=== PATIENT | male | born 1985 | race Caucasian/White ===

== ENCOUNTER 2016-11-04 02:43 | Emergency (ER) | payer SELFPAY ==
[~2016-11-04] VITALS: Ht 185.4 cm; Wt 75.0 kg
[~2016-11-04 02:43] MED LIST: BUPR2SUB SL
[2016-11-04 02:46] VITALS: BP 124/82; PULSE 88; RESP 18; TEMP 97.9; O2SAT 96
--- NOTE | 2016-11-04 03:30 | RADRPT ---
EXAM DATE/TIME: 11/04/2016 02:48 [facility] COMPARISON: No previous studies available for comparison. INDICATIONS : Left ankle pain and swelling for one week without any known trauma. MEDICAL HISTORY : None. SURGICAL HISTORY : None. ENCOUNTER: Initial ACUITY: 1 week PAIN SCORE: 6/10 LOCATION: Left Ankle FINDINGS: Three view exam was performed of the left ankle. The bony structures are in normal alignment. No ev idence of fracture or dislocation. Minimal soft tissue swelling. The ankle mortise is intact. No ra diopaque foreign bodies are seen. Bony mineralization is normal. CONCLUSION: Soft tissue swelling without fracture. Vahid Matos MD on November 04, 2016 at 3:28 Board Certified Radiologist. This report was verified electronically.
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
[2016-11-04] MEDS ORDERED: BACT2OIN TOPICAL (03:36)
[2016-11-04] MEDS ORDERED: IBUP800T23 PO (03:36)
[2016-11-04] MEDS ORDERED: IBUPROFEN 800 MG TAB PO ONE (03:45)
== END 2016-11-04 04:05 | disposition home or self-care (01) ==
LOC: NEPB 02:43
DX: S86.892A Other injury of other muscle(s) and tendon(s) at lower leg level, left leg, initial encounter (principal); L01.00 Impetigo, unspecified; X58.XXXA Exposure to other specified factors, initial encounter; Y93.9 Activity, unspecified; Y92.9 Unspecified place or not applicable; Y99.9 Unspecified external cause status; F10.10 Alcohol abuse, uncomplicated; F17.210 Nicotine dependence, cigarettes, uncomplicated; Z87.898 Personal history of other specified conditions
CPT/HCPCS: 73610; 99283

== ENCOUNTER 2017-06-24 20:05 | Emergency (ER) | payer SELFPAY ==
[~2017-06-24 20:05] MED LIST changes: +BACT2OIN TOPICAL; +IBUP1TAB7 PO
[2017-06-24 20:07] VITALS: BP 133/79; PULSE 82; RESP 16; TEMP 98.5; O2SAT 99
--- NOTE | 2017-06-24 21:57 | RADRPT ---
EXAM DATE/TIME: 06/24/2017 20:43 [facility] COMPARISON: No previous studies available for comparison. INDICATIONS : Right hand pain. Patient states he had a blister pop one week ago and has had servere pain the last t hree days. MEDICAL HISTORY : None. SURGICAL HISTORY : None. ENCOUNTER: Initial ACUITY: 3 days PAIN SCORE: 8/10 LOCATION: Right hand. FINDINGS: Three view examination of the right hand demonstrates no soft tissue swelling, dislocation, or fractu re. The carpal bones appear intact. The interphalangeal and metacarpophalangeal joints are intact. Bony mineralization is normal. CONCLUSION: Unremarkable examination of the right hand. Uriel Resendez MD on June 24, 2017 at 21:55 Board Certified Radiologist. This report was verified electronically.
[2017-06-24] MEDS ORDERED: TETANUS/DIPHTHERIA TOXOID ADULT 0.5 ML VIAL IM ONE (22:45)
[2017-06-24] MEDS ORDERED: KETOROLAC TROMETHAMINE 60 MG/2 ML (IM) VIAL IM ONE (22:45)
[2017-06-24] MEDS ORDERED: CEPHALEXIN MONOHYDRATE 500 MG CAP PO ONE (22:45)
[2017-06-24] MEDS ORDERED: SULFAMETHOXAZOLE-TRIMETHOPRIM DS 800-160 MG TAB PO ONE (22:45)
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
[2017-06-24] MEDS ORDERED: CEPH-460 PO (22:55)
[2017-06-24] MEDS ORDERED: NAPR500 PO (22:55)
[2017-06-24] MEDS ORDERED: BACT800T5 PO (22:55)
== END 2017-06-24 23:28 | disposition home or self-care (01) ==
LOC: NEPK 20:05
DX: L03.113 Cellulitis of right upper limb (principal); F98.8 Other specified behavioral and emotional disorders with onset usually occurring in childhood and adolescence; F31.9 Bipolar disorder, unspecified; F41.9 Anxiety disorder, unspecified; F20.9 Schizophrenia, unspecified; F60.9 Personality disorder, unspecified; F17.200 Nicotine dependence, unspecified, uncomplicated; Z86.19 Personal history of other infectious and parasitic diseases; Z23 Encounter for immunization
CPT/HCPCS: 73130; 90471; 90714; 96372; 99284; J1885

== ENCOUNTER 2017-06-28 15:37 | Emergency (ER) | payer SELFPAY ==
[~2017-06-28] VITALS: Ht 185.4 cm; Wt 82.0 kg
[~2017-06-28 15:37] MED LIST changes: +BACT800T5 PO; +CEPH-460 PO; +NAPR500 PO
[2017-06-28 15:39] VITALS: BP 131/69; PULSE 75; RESP 17; TEMP 97.8; O2SAT 98
[2017-06-28] MEDS ORDERED: LIDOCAINE HCL 1% PF 30 ML VIAL INFIL ONE (17:15)
--- NOTE | 2017-06-28 18:29 | PD ---
Physical Exam Date Seen by Provider: Jun 28, [address] Taylor requested me to perform an incision and drainage on this patient. She is currently taking 2 antibiotics for this condition. I&D performed on left middle finger for a felon INCISION AND DRAINAGE OF ABSCESS: The area was prepped and was sterilely draped. A digital block was performed of the left middle finger with 1% lidocaine without epinephrine. A #11 scalpel was used to make a 5 mm incision across the area of the abscess. The abscess was drained, complex loculations were broken down, and irrigated with normal saline. Cultures were obtained. Quarter inch iodoform packing was placed in the wound- acting as a wick. Sterile dressing applied. Patient advised to have packing removed in 24 hours. Advised on wound care. Advised to continue antibiotics for this wound. Data Data Last Documented VS Vital Signs Date Time Temp Pulse Resp B/P (MAP) Pulse Ox O2 Delivery O2 Flow Rate FiO2 06/28/17 15:39 97.8 75 17 131/69 (89) 98 Room Air Orders Orders Lidocaine Pf 1% Inj (Xylocaine-Mpf 1% In (06/28/17 17:15) Ed Discharge Order (06/28/17 18:48) MDM Supervised Visit with [facility]ME: Yes Procedures Procedure Narrative i&D Diagnosis Primary Impression: Abscess Additional Instruction: Remove packing and bandages in 1 day Replace bandages at least daily. Keep clean and dry for at least 3 days. Longer if the site continues to have pus Take all medications as prescribed. Disposition: 01 DISCHARGE HOME Condition: Stable Ingris Duque Jun 28, 2017 18:29
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
== END 2017-06-28 19:18 | disposition home or self-care (01) ==
LOC: NEPD 15:37
DX: L02.512 Cutaneous abscess of left hand (principal); Z86.59 Personal history of other mental and behavioral disorders; Z86.19 Personal history of other infectious and parasitic diseases
CPT/HCPCS: 26010

== ENCOUNTER 2017-08-14 17:03 | Emergency (ER) | payer OTHER ==
[~2017-08-14] VITALS: Ht 182.9 cm; Wt 70.0 kg
[2017-08-14 17:20] VITALS: BP 137/80; PULSE 88; RESP 18; TEMP 98.2; O2SAT 100
[2017-08-14 18:14] VITALS: BP 143/79; PULSE 71; RESP 15; O2SAT 98
[2017-08-14 19:28] VITALS: BP 139/66; PULSE 68; RESP 16; O2SAT 98
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
[2017-08-14] MEDS ORDERED: SODIUM CHLOR 0.9% 1000 ML INJ 1,000 ML IV ONE (21:30)
[2017-08-14 22:17] LABS: AUTOMATED NEUTROPHIL # 5.9 TH/MM3 (1.8-7.7); BASOPHIL % 0.6 % (0.0-2.0); EOSINOPHIL # 0.1 TH/MM3 (0-0.4); EOSINOPHIL % 0.8 % (0.0-4.0); HEMATOCRIT 39.1 % (39.0-51.0); HEMOGLOBIN 13.3 GM/DL (13.0-17.0); LYMPH % 17.9 % (9.0-44.0); LYMPHOCYTE # 1.5 TH/MM3 (1.0-4.8); MEAN CELL VOLUME 87.8 FL (80.0-100.0); MEAN CORPUSCULAR HEMOGLOBIN 29.8 PG (27.0-34.0); MEAN PLATELET VOLUME 9.4 FL (7.0-11.0); MONO % 9.6 % (0.0-8.0); MONOCYTE # 0.8 TH/MM3 (0-0.9); NEUT % 71.1 % (16.0-70.0); PLATELET COUNT 220 TH/MM3 (150-450); RED BLOOD COUNT 4.45 MIL/MM3 (4.50-5.90); RED CELL DISTRIBUTION WIDTH 14.5 % (11.6-17.2); WHITE BLOOD COUNT 8.3 TH/MM3 (4.0-11.0)
[2017-08-14 22:40] LABS: ALBUMIN 3.9 GM/DL (3.4-5.0); ALT (GPT) 179 U/L (12-78); AST (GOT) 112 U/L (15-37); BICARBONATE 27.6 MEQ/L (21.0-32.0); BLOOD UREA NITROGEN 11 MG/DL (7-18); CALCIUM 8.8 MG/DL (8.5-10.1); CHLORIDE 102 MEQ/L (98-107); CREATININE 0.74 MG/DL (0.60-1.30); GLOMERULAR FILTRATION RATE 121 ML/MIN (>89); GLUCOSE,RANDOM 84 MG/DL (74-106); SODIUM (NA) 137 MEQ/L (136-145)
[2017-08-14 22:41] LABS: ALKALINE PHOSPHATASE 46 U/L (45-117); TOTAL BILIRUBIN ADULT 0.7 MG/DL (0.2-1.0); TOTAL PROTEIN 7.5 GM/DL (6.4-8.2)
== END 2017-08-14 23:44 | disposition home or self-care (01) ==
LOC: NEPD 17:03
DX: T40.1X1A Poisoning by heroin, accidental (unintentional), initial encounter (principal); T42.4X5A Adverse effect of benzodiazepines, initial encounter; F31.9 Bipolar disorder, unspecified; F41.9 Anxiety disorder, unspecified; G47.00 Insomnia, unspecified; F20.9 Schizophrenia, unspecified; B19.20 Unspecified viral hepatitis C without hepatic coma; F17.200 Nicotine dependence, unspecified, uncomplicated; X58.XXXA Exposure to other specified factors, initial encounter
CPT/HCPCS: 80053; 85025; 96360; 99284; J7030